=== PATIENT | female | born 1995 | race Caucasian/White ===

== ENCOUNTER 2017-02-28 20:20 | Emergency (ER) | payer BC, OTHER ==
[2017-02-28 20:26] VITALS: RESP 18
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
[2017-02-28 21:32] VITALS: TEMP 98.1
[2017-02-28 22:25] VITALS: BP 118/66; PULSE 80; O2SAT 96
== END 2017-02-28 22:24 | disposition home or self-care (01) ==
DX: S09.90XA Unspecified injury of head, initial encounter (principal); S80.211A Abrasion, right knee, initial encounter; V19.9XXA Pedal cyclist (driver) (passenger) injured in unspecified traffic accident, initial encounter; Y92.410 Unspecified street and highway as the place of occurrence of the external cause; Y99.8 Other external cause status; Y93.55 Activity, bike riding